=== PATIENT | male | born 1965 | race Caucasian/White ===

== ENCOUNTER 2016-08-16 08:10 | Inpatient (IN) | payer MEDICARE, OTHER ==
[~2016-08-16 08:10] MED LIST: ceFAZolin SODIUM 1 GM VIAL IV PRN
--- OUTSIDE RECORDS SUMMARY | 2016-08-16 08:14 | XMS REPORT | Continuity of Care Document ---
:1965 Author Organization [facility] ([facility]) Address [address] [place] [address] Phone [phone] Care Team Providers Name Role Phone Marisol Mullins Primary Care Provider [phone] Source Comments This disclosure is being made pursuant to the Care Everywhere program, applicable federal and state laws, and may not contain all informaitonavailable regarding this patient.[facility] ([facility]) Active Allergies and Adverse Reactions Allergen Noted Date Severity Reactions Comments Acetaminophen Urticaria (Hives) Propoxyphene Urticaria (Hives) Tetanus Toxoid, Respiratory Distress loss of consciousness Adsorbed Current Medications Prescription Sig. Disp. Refills Start Date End Date Status traMADol 50 mg tablet Take 50 mg by Active mouth 4 times daily. gabapentin 300 mg tablet Take 300 mg by Active mouth 2 times daily. simvastatin 20 mg tablet Take 20 mg by Active mouth 2 times daily. metoPROLol succinate 50 mg Take 50 mg by Active XL tablet mouth 2 times daily. Saxagliptin (ONGLYZA) 5 mg Take 5 mg by Active Tab mouth 2 times daily. cyclobenzaprine 10 mg Take 10 mg by Active tablet mouth 2 times daily. enalapril 10 mg tablet Take 10 mg by Active mouth daily. glyBURIDE 5 mg tablet Take 10 mg by Active mouth daily. FREESTYLE LANCETS NA Active ibuprofen 800 mg tablet Take 800 mg by Active mouth 3 times daily. SYRINGE & NEEDLE,INSULIN,1 Active ML (BD INSULIN SYRINGE NA ) HYDROCODONE-ACETAMINOPHEN Take 1 Tab by 05/27/2013 Active 5-300 mg per tablet mouth every 6 hours as needed. metFORMIN 1,000 mg tablet Take 1,000 mg by Active mouth 2 times daily. insulin glargine (LanTUS inject Active SOLOSTAR) 100 unit/mL (3 subcutaneously. mL) injection pen 70 units in am and 50 units in pm Active Problems Problem Noted Date Neck pain 06/03/2013 Osteoarthrosis, unspecified whether generalized or localized, unspecified site Other postprocedural status(V45.89) 03/30/2005 Other and unspecified disc disorder of unspecified region 03/10/2005 Social History Tobacco Use Types Packs/Day Years Used Date Current Every Day Smoker Cigarettes 1 39 Smokeless Tobacco: Never Used Alcohol Use Drinks/Week oz/Week Comments No Last Filed Vital Signs Vital Sign Reading Time Taken Blood Pressure 147/79 10/27/2013 3:18 PM CDT Pulse 79 10/27/2013 3:18 PM CDT Temperature 36.6 C (97.9 F) 10/27/2013 3:18 PM CDT Respiratory Rate 20 02/22/2004 10:41 AM CDT Height 1.854 m (6' 1") 10/27/2013 3:18 PM CDT Weight 125.221 kg (276 lb 1 oz) 10/27/2013 3:18 PM CDT Body Mass Index 36.43 10/27/2013 3:18 PM CDT Oxygen Saturation 96% 10/27/2013 2:33 PM CDT Plan of Care Health Maintenance Due Date Last Done Comments HCV Screening 1965 Hepatitis B Vaccine (1 of 3 - Primary Series) 1965 Lipid Disorder Screening 06/30/1981 MMR Vaccine 06/30/1981 Pneumococcal Vaccine (1 of 1 - PPSV23) 06/30/1982 Colonoscopy 06/30/2013 Prostate Cancer Screening 06/30/2013 Influenza Vaccine: Seasonal (#1) 11/29/2015 Results from Last 3 Months Not on file
[2016-08-16] MEDS ORDERED: RINGERS SOLUTION,LACTATED 1,000 ML IV PRN (09:00)
[2016-08-16] MEDS ORDERED: ALBUTEROL SULFATE 2.5 MG/3 ML VIAL.NEB IH PRN (12:44)
[2016-08-16] MEDS ORDERED: BUPIVACAINE HCL 50 ML VIAL IJ ONE ×2 (13:57)
[2016-08-16] MEDS ORDERED: RINGERS SOLUTION,LACTATED 1,000 ML IV ONE ×2 (13:57→13:58)
[2016-08-16] MEDS: CANAGLIFLOZIN 100 MG TABLET PO SCH (14:03)
[2016-08-16] MEDS ORDERED: PROMETHAZINE HCL 5 MG in DEXTROSE 5 % IN WATER 50 ML IV PRN ×2 (14:56)
[2016-08-16] MEDS ORDERED: MAGNESIUM HYDROXIDE 30 ML UDC PO PRN (14:56)
[2016-08-16] MEDS ORDERED: ONDANSETRON HCL/PF 2 MG/ML VIAL IV PRN (14:56)
[2016-08-16] MEDS ORDERED: ZOLPIDEM TARTRATE 5 MG TABLET PO PRN (14:56)
[2016-08-16] MEDS ORDERED: HYDROmorphone HCL 1 MG/ML DISP.SYRIN IV PRN (14:56)
[2016-08-16] MEDS ORDERED: diphenhydrAMINE HCL 50 MG/ML VIAL IV PRN (14:56)
[2016-08-16] MEDS ORDERED: MAG HYDROX/ALUMINUM HYD/SIMETH 30 ML UDC PO PRN (14:56)
[2016-08-16] MEDS: ISOSORBIDE MONONITRATE 30 MG TAB.SR.24H PO SCH (16:38)
[2016-08-16] MEDS: DABIGATRAN ETEXILATE MESYLATE 150 MG CAPSULE PO SCH ×2 (16:38→20:22)
[2016-08-16] MEDS: ASPIRIN 325 MG TABLET.DR PO SCH (16:38)
[2016-08-16] MEDS: RINGERS SOLUTION,LACTATED 1,000 ML IV PRN (17:04)
[2016-08-16] MEDS: INSULIN ASPART 100 UNITS/ML VIAL SC SCH (17:26)
[2016-08-16] MEDS: oxyCODONE HCL/ACETAMINOPHEN 1 TAB TABLET PO PRN (18:51)
[2016-08-16] MEDS: ceFAZolin SODIUM 1 GM in DEXTROSE 5 % IN WATER 100 ML IV SCH ×2 (18:54)
[2016-08-16] MEDS: INSULIN GLARGINE,HUM.REC.ANLOG 100 UNITS/ML VIAL SC SCH (20:18)
[2016-08-16] MEDS: METOPROLOL TARTRATE 50 MG TABLET PO SCH (20:23)
[2016-08-16] MEDS: ROSUVASTATIN CALCIUM 10 MG TABLET PO SCH (20:23)
[2016-08-16] MEDS: SENNOSIDES/DOCUSATE SODIUM 1 TAB TABLET PO SCH (20:24)
[2016-08-17] MEDS: ceFAZolin SODIUM 1 GM in DEXTROSE 5 % IN WATER 100 ML IV SCH ×4 (00:55→07:21)
[2016-08-17] MEDS: RINGERS SOLUTION,LACTATED 1,000 ML IV PRN (02:22)
[2016-08-17] MEDS: oxyCODONE HCL/ACETAMINOPHEN 1 TAB TABLET PO PRN ×4 (02:25→17:48)
[2016-08-17 05:35] LABS: Hematocrit 39.2 % (42.0-52.0); Hemoglobin 12.8 gm/dL (13.5-18.0); Mean Cell Volume 91.8 fl (78-100); Mean Corpuscular Hgb Conc 32.7 g/dl (32-36); Mean Platelet Volume 9.6 fl (6.0-9.5); Platelet Count 234 K/mm3 (150-450); Red Blood Count 4.27 M/mm3 (4.7-6.0); Red Cell Distribution Width 13.3 % (11.5-14.0); White Blood Count 13.8 K/mm3 (4.0-10.5)
[2016-08-17 05:47] LABS: Anion Gap 11.3 mmol/L (6.8-13.8); BUN/Creatinine Ratio 15.5 (9.0-21.6); Calcium * 8.7 mg/dL (7.9-10.9); Carbon Dioxide 27.5 mmol/L (24-32.6); Potassium 3.8 mmol/L (3.4-4.6)
[2016-08-17] MEDS: INSULIN ASPART 100 UNITS/ML VIAL SC SCH ×3 (07:20→17:46)
--- NOTE | 2016-08-17 08:00 | PN ---
Subjective - Date and Time Seen Date: 08/17/16 Time: 07:56 Subjective Narrative: He is not complaints. He is resting in bed. He states the pain is well- controlled. No issues last night Objective - Vitals Vitals: Last Vital Signs Temp 36.8 C 08/17/16 06:22 Pulse 83 08/17/16 06:22 Resp 18 08/17/16 06:22 BP 119/63 08/17/16 06:22 Pulse Ox 97 08/17/16 06:22 - Abnormal Lab Findings Abnormal Lab Findings: Abnormal Lab Results 08/17/16 08/17/16 Range/Units 05:32 05:32 WBC 13.8 H (4.0-10.5) K/mm3 RBC 4.27 L (4.7-6.0) M/mm3 Hgb 12.8 L (13.5-18.0) gm/dL Hct 39.2 L (42.0-52.0) % MPV 9.6 H (6.0-9.5) fl Random Glucose 112 H (70-110) mg/dL - Exam Exam Narrative: Is alert and oriented 3. Right lower extremity: Dressings dry, thigh soft, drain in place, minimally tender Constitutional: Present: Alert, Oriented x3 Assessment/Plan - Problems/Diagnosis (1) Status post below knee amputation of right lower extremity Problem: Acute Narrative: We will continue to drain, follow up on cultures, intraoperatively there do not appear to be any gross signs of infection. PT will work on mobility and if he is stable to plan will be discharged tomorrow (2) Diabetes mellitus Problem: Chronic Qualifiers: Diabetes mellitus type: type 2 (3) History of heart attack Problem: Chronic (4) Hyperlipemia Problem: Chronic (5) Hypertension Problem: Chronic
--- NOTE | 2016-08-17 08:41 | PN ---
Subjective - Date and Time Seen Date: 08/17/16 Time: 08:38 Subjective Narrative: No chest pain no shortness of breath pain is better and no hypoglycemic spell Objective - Review of Systems Generalized/Overall Review: Reports: No Symptoms Reported EENTM: Reports: No Symptoms Reported Respiratory: Reports: No Symptoms Reported Cardiac: Reports: No Symptoms Reported Abdominal: Reports: No Symptoms Reported Genitourinary Symptoms: Reports: No Symptoms Reported Neurological: Reports: No Symptoms Reported Skin: Reports: No Symptoms Reported - Vitals Vitals: Last Vital Signs Temp 36.8 C 08/17/16 06:22 Pulse 83 08/17/16 06:22 Resp 18 08/17/16 06:22 BP 119/93 08/17/16 06:22 Pulse Ox 97 08/17/16 06:22 - Abnormal Lab Findings Abnormal Lab Findings: Abnormal Lab Results 08/17/16 08/17/16 Range/Units 05:32 05:32 WBC 13.8 H (4.0-10.5) K/mm3 RBC 4.27 L (4.7-6.0) M/mm3 Hgb 12.8 L (13.5-18.0) gm/dL Hct 39.2 L (42.0-52.0) % MPV 9.6 H (6.0-9.5) fl Random Glucose 112 H (70-110) mg/dL - Exam Constitutional: Present: Alert, Oriented x3, Cooperative Respiratory: Present: lungs clear, normal breath sounds Cardiovascular/Chest: Present: regular rate, rhythm, no murmur, other - Heart rate slowed down after increased dose of metoprolol Skin Exam: Present: normal color Assessment/Plan - Problems/Diagnosis (1) Diabetes mellitus Problem: Chronic Qualifiers: Diabetes mellitus type: type 2 Narrative: Blood sugar range has improved after receiving Invokana (2) CAD in [place] artery Problem: Chronic Narrative: He is tolerating increased dose of metoprolol and heart rate has slowed down
[2016-08-17] MEDS: FENOFIBRATE,MICRONIZED 134 MG CAPSULE PO SCH (09:02)
[2016-08-17] MEDS: ISOSORBIDE MONONITRATE 30 MG TAB.SR.24H PO SCH (09:02)
[2016-08-17] MEDS: DABIGATRAN ETEXILATE MESYLATE 150 MG CAPSULE PO SCH ×2 (09:02→20:13)
[2016-08-17] MEDS: ASPIRIN 325 MG TABLET.DR PO SCH (09:03)
[2016-08-17] MEDS: CANAGLIFLOZIN 100 MG TABLET PO SCH (09:03)
[2016-08-17] MEDS: METOPROLOL TARTRATE 50 MG TABLET PO SCH ×2 (09:03→20:13)
[2016-08-17] MEDS: LISINOPRIL 2.5 MG TABLET PO SCH (09:03)
[2016-08-17] MEDS: SENNOSIDES/DOCUSATE SODIUM 1 TAB TABLET PO SCH (20:13)
[2016-08-17] MEDS: ROSUVASTATIN CALCIUM 10 MG TABLET PO SCH (20:13)
[2016-08-17] MEDS: INSULIN GLARGINE,HUM.REC.ANLOG 100 UNITS/ML VIAL SC SCH (20:15)
[2016-08-18] MEDS: oxyCODONE HCL/ACETAMINOPHEN 1 TAB TABLET PO PRN ×2 (02:10→12:14)
[2016-08-18] MEDS: INSULIN ASPART 100 UNITS/ML VIAL SC SCH ×2 (07:39→11:37)
[2016-08-18] MEDS: ISOSORBIDE MONONITRATE 30 MG TAB.SR.24H PO SCH (08:28)
[2016-08-18] MEDS: METOPROLOL TARTRATE 50 MG TABLET PO SCH (08:33)
[2016-08-18] MEDS: FENOFIBRATE,MICRONIZED 134 MG CAPSULE PO SCH (08:33)
[2016-08-18] MEDS: DABIGATRAN ETEXILATE MESYLATE 150 MG CAPSULE PO SCH (08:34)
[2016-08-18] MEDS: LISINOPRIL 2.5 MG TABLET PO SCH (08:34)
[2016-08-18] MEDS: CANAGLIFLOZIN 100 MG TABLET PO SCH (08:35)
[2016-08-18] MEDS: ASPIRIN 325 MG TABLET.DR PO SCH (08:36)
[2016-08-18 08:38] VITALS: BP 131/68
--- NOTE | 2016-08-18 09:53 | DS ---
(1) Seroma Problem: Acute (2) Status post below knee amputation of right lower extremity Problem: Acute (3) Diabetes mellitus Problem: Chronic Qualifiers: Diabetes mellitus type: type 2 (4) History of heart attack Problem: Chronic Description of Stay: Mr. Camacho was admitted 08/16/2016 after undergoing revision of right below- knee of amputation. He was measured for pain control and IV antibiotics pending his cultures. Postop day 1 his pain was adequately controlled his having no complications initial cultures were negative. Postop day 2 patient's pain was well enough controlled that he felt stable for discharge and his final culture showed no growth. His course of stay was uneventful. He was afebrile. He did have a reactive elevated white count on postop day 1 of 13,800. He was discharged with instructions to be nonweightbearing with no use of his prosthesis. His drains were left intact and was having minimal drainage. He was discharged to follow up in our office August 21 to have the drains removed and dressings changed. He will resume his home medications. Procedures Performed: see notes below List Procedures: Revision amputation RLE Results and Findings: Cultures negative. Discharge Disposition: Home self care Disposition: Home self-care Condition: Good Referrals: Lincoln Juarez MD [Primary Care Provider] - Additional Patient Instructions (free text): Follow-up in the office with Dr. Stearns on 08-29-16@1:45. [facility] PT after discharge. Complete Home Medications List: Complete Home Medication List: Dabigatran Etexilate Mesylate [Pradaxa] 150 mg PO BID 09/24/15 Isosorbide Mononitrate [Imdur] 30 mg PO DAILY 09/24/15 Lisinopril [Zestril] 2.5 mg PO DAILY 09/24/15 Metoprolol Tartrate [Lopressor] 50 mg PO BID 09/24/15 metFORMIN HCL [Glucophage] 1,000 mg PO BIDWM 09/24/15 Aspirin [Aspirin Enteric Coated] 325 mg PO DAILY 11/09/15 Rosuvastatin Calcium [Crestor] 20 mg PO HS 11/09/15 Albuterol Sulfate [Proventil Hfa] 1 - 2 puff INH Q4H PRN 08/14/16 Blood-Glucose Meter [Blood Glucose Monitoring] 1 each MC TID 08/14/16 Canagliflozin [Invokana] 100 mg PO DAILY 08/14/16 Fenofibrate Nanocrystallized [Tricor] 145 mg PO DAILY 08/14/16 Insulin Aspart [Novolog] 0 units SC TIDWM PRN 08/14/16 Insulin Glargine,Hum.rec.anlog [Lantus Solostar] 80 unit SQ HS 08/14/16 traMADol HCL [Ultram] 50 - 100 mg PO Q12H PRN 08/14/16 oxyCODONE HCL/ACETAMINOPHEN [Percocet 5 MG/325 MG] 2 tab PO Q4H PRN #60 tablet 08/18/16
== END 2016-08-18 14:30 | disposition home or self-care (01) | DRG 476 ==
LOC: MS 08:10
PROVIDERS: ADMIT Orthopaedic Surgery; ATTEND Orthopaedic Surgery
PROC: 0Y6H0Z2 Detachment at Right Lower Leg, Mid, Open Approach (ICD-10-PCS; principal; 2016-08-16 14:30)
DX: T87.89 Other complications of amputation stump (principal); M89.8X6 Other specified disorders of bone, lower leg; I10 Essential (primary) hypertension; E78.5 Hyperlipidemia, unspecified; I25.10 Atherosclerotic heart disease of native coronary artery without angina pectoris; F17.210 Nicotine dependence, cigarettes, uncomplicated; Z98.61 Coronary angioplasty status; I25.2 Old myocardial infarction; Z79.82 Long term (current) use of aspirin